=== PATIENT | male | born 1940 | race Caucasian/White ===

== ENCOUNTER 2020-11-08 04:35 | Inpatient (IN) | payer MEDICARE, SELFPAY ==
[2020-11-08] VITALS (36 sets, daily range): BP systolic 97–162; BP diastolic 60–105; PULSE 70–181; RESP 14–25; TEMP 35.9–38.3; O2SAT 96–100; BMI 45.4; BMI 30.7
--- NOTE | 2020-11-08 04:49 | ECG_ITS ---
APPROVED REPORT Exam: Resting ECG HR:159 bpm ECG Measurements Heart Rate 159 AXES QRSd 136 QRS -15 QT 298 T 173 QTc 484 Conclusion Atrial fibrillation with rapid ventricular response with premature ventricular or aberrantly conducted complexes Nonspecific intraventricular block Nonspecific T wave abnormality, probably digitalis effect Abnormal ECG Electronically signed by : Valerio Rdz, 11/08/2020 07:41:09
--- NOTE | 2020-11-08 04:59 | XR_ITS ---
PROCEDURE: XR CHEST PORTABLE Referring Doctor: Gary Betancourt Patient Age:80Y CLINICAL HISTORY: intubation recent covid 19 COMPARISON: CR CXR CHEST(2 VIEWS-NOT PORTABLE) from 09/08/2014 FINDINGS: Endotracheal tube has been placed. Satisfactory position tip just below the level of the head of the clavicles, with with tip 5.7 cm above farhana. Endotracheal tube also is in place and seen passing inferiorly at least to the GE junction at the lower margin of the image but The left lung appears hyperexpanded and clear with only some mild atelectasis left base . Right lung there is a right perihilar infiltrate-most evident at right suprahilar region with subtle minimal infiltrate extending superiorly towards the right apex. Question subtle infiltrate throughout the RUL along with some mild volume loss. Also appears to be infiltrate at the right infrahilar region extending slightly with elevation right hemidiaphragm but there also subtle perihilar infiltrate extending towards right midlung likely present. Chest wall unremarkable Advanced arthritic changes are seen at the shoulders noted. Heart normal size with normal pulmonary vascularity. IMPRESSION: ET tube satisfactory position. NG tube in place as well extending at least to the GE junction Right perihilar/central infiltrate most evident right suprahilar region&right upper lobe Additional elevation right hemidiaphragm reflects some of associated volume loss on right compared to prior studies Dictated by: Patric Richmond MD 11/08/2020 18:42 Patric Richmond MD in [place] 11/08/2020 18:42
--- NOTE | 2020-11-08 05:18 | PC.NURSE ---
called [facility] and they advised they had no icu beds
--- NOTE | 2020-11-08 05:20 | PC.NURSE ---
called [facility] for flight status and stand by request. closet was gonna be their [place] with a 45 min flight time plus lift. they advised they will call [facility] and call us back.
--- NOTE | 2020-11-08 05:20 | PC.NURSE ---
Pt found by family at home with Agonal Respirations 911 called EMS states pt had pulse, but Agonal breaths on EMS arrival. Pt become PEA when loaded into Ambulance, Bag Mask ventalation on arrival with chest compressions in progress. Pt was asystole on arrival 20 ga IV to left AC per EMS with N.S. infusing. code taken over by this staff on arrival pt given Epi @ 0438 CPR continues, 7.5 ETT placed 19cm @ lip Positive Color change and bilateral breath sounds auscultated, tube secured with device. Saleh 16 fr placed with turbid return, Pt deep suctioned, 0449 appears fine v-fib on monitor 1 amp of atropine given, CPR continues, 0443 1 amp EPI given and OG place with air auscultated over abd. 0445 pt has palpable pulse A-Fib on monitor rate of 135. 0448 BiCarb 1 amp given, 0449 EKG obtained, pt placed on vent, attempting to get pt transferred, Pupils 5mm and sluggish but round and equal.
[2020-11-08 05:24] LABS: Basophils # 0.1 K/mm3 (0-0.2); Basophils % 0.8 % (0.1-2.0); Eosinophils # 0.1 K/mm3 (0.0-0.4); Eosinophils % 0.6 % (0.1-12.0); Hemoglobin 8.2 g/dL (14.1-18.0); Lymphocytes # 2.7 K/mm3 (0.7-4.5); Lymphocytes % 32.8 % (10-50); Mean Corpuscular HGB Conc 29.7 g/dL (31.8-35.4); Mean Corpuscular Hemoglobin 32.2 pg (27.0-31.2); Mean Corpuscular Volume 108.4 fl (80-94); Mean Platelet Volume 8.9 fl (7.4-10.4); Monocytes # 0.5 K/mm3 (0.1-1.0); Neutrophils # 4.8 K/mm3 (1.8-7.8); Neutrophils % 59.9 % (37.0-80.0); Platelet Count 228 K/mm3 (142-424); Red Blood Count 2.56 M/mm3 (4.60-6.20); Red Cell Distribution Width 19.3 % (11.5-17.5); White Blood Count 8.1 K/mm3 (4.8-10.8)
--- NOTE | 2020-11-08 05:24 | HMH.EDCPR ---
ED Disposition Clinical Impression: Severe sepsis with acute organ dysfunction, Septic shock, Elevated brain natriuretic peptide (BNP) level, Renal insufficiency Respiratory failure with hypercapnia Qualifiers: Chronicity: acute Qualified Code(s): J96.02 - Acute respiratory failure with hypercapnia UTI (urinary tract infection) Qualifiers: Urinary tract infection type: acute cystitis Hematuria presence: without hematuria Qualified Code(s): N30.00 - Acute cystitis without hematuria Anemia Qualifiers: Anemia type: unspecified type Qualified Code(s): D64.9 - Anemia, unspecified Obesity Qualifiers: Obesity type: due to excess calories Obesity classification: adult class 3 (BMI >= 40) Serious obesity comorbidity presence: with serious comorbidity Body mass index: BMI 45.0-49.9 Qualified Code(s): E66.01 - Morbid (severe) obesity due to excess calories; Z68.42 - Body mass index [BMI] 45.0-49.9, adult A-fib Qualifiers: Atrial fibrillation type: unspecified Qualified Code(s): I48.91 - Unspecified atrial fibrillation Disposition: Admitted As Inpatient Condition on Discharge: Critical - Critical Care Critical Care Time: Yes Attestation: On 11/08/20, the high probability of a clinically significant, sudden or life threatening deterioration of the following system(s) required my full and direct attention, intervention and personal management. The time I documented below is in addition to time spent performing reported procedures but includes the following listed in this critical care notation. Total Critical Care Time: 90 Vital system(s) involved:: Respiratory Failure, Shock (Septic) My critical care processes included: Assessment & monitoring of V/S, Initial and Re-exams, Coordinating Care, Medication Orders and management, Documentation [facility] Code Documentation - Arrest Information Outside of Hospital The Code Document Section documentation for [id number] Aidan Dukes was populated with data that defaulted in from the spares scheduler in the Code Assessment on f_Reg Service Date] to provide within this report, the status and treatment of the patient in the ED during a Code. This documentation will be supplemented with my direct findings within the body of the report. Date Treatment Initiated: 11/08/20 Time Treatment Initiated: 04:30 Treatment Initiated By: EMS Location of Arrest: home Arrest Witnessed: Yes Estimated Down Time: 5 minutes - ALS Code Inititation ALS Initiated By: EMS ALS Type: ACLS ALS Initiated Start Time: 04:30 - Patient Condition At Code Start Condition of Patient at Start of Code: Apneic Monitoring Devices: ECG Monitor, Pulse Oximeter - Circulation Initial Cardiac Rhythm: PEA - Oxygenation Oxygen Breathing Status: Assisted - Labs Fingerstick Blood Glucose: 270 - Procedures ABG's Drawn: Yes Labs Drawn: Yes - Assisted Ventilation ETT Insertion Time: 04:40 ETT Size: 7.5 ETT Insertion Site: Oral Endotracheal ETT Position at Lip: 19 ETT Tube Inserted By: JS - Urinary Catheter Saleh Date of Insertion: 11/08/20 Time of Insertion: 03:40 Size (Fr): 16 Saleh Balloon Amount: 10 - Gastric Tube Oral Suction: Low Gastric Content Description: Clear - Code End Time Code Ended: 04:45 Patient Successfully Resuscitated: Yes (afib RVR Vent assist resp) Reason Code Ended: Survived - Return of Circulation > 20 minutes Family Members Present During Code: No Names of All Individuals Present at Code: Dr Betancourt. Sanket Kaur RN. Belén Ferraro RN. ROBLES Garcia RN. Douglas Marshall. Nancie Martinez RN Medical Decision Making - Medical Records Medical records reviewed: Yes: I reviewed the patient's medical records. - Eyal Inquiry Pt receiving controlled substance: No Vital Signs: 11/08/20 04:35 11/08/20 04:55 11/08/20 05:00 Temperature 99.4 F Temperature Source Rectal Pulse Rate [Right] 181 H 163 H Respiratory Rate 14 16 Blood Pressure [Right Arm] 120/73 138/105 H
[2020-11-08 05:29] LABS: Hematocrit 27.7 % (42.0-52.0)
[2020-11-08 05:29] LABS: Microscopic, Urine URINE MICROSCOPIC (MICROSCOPIC)
--- NOTE | 2020-11-08 05:32 | PC.NURSE ---
called [facility]. they advised they had no beds available at this time.
[2020-11-08 05:35] LABS: ABG Base Excess -11.4 mmol/L (-2.4-2.3); ABG Oxygen Saturation 100 % (90-100); ABG PO2 277.3 mmhg (80-100); ABG TCO2 25.8 mmhg (23-27)
[2020-11-08 05:36] LABS: Allen's Test Patient Unable; Oxygen 100 %; Source Right Femoral
[2020-11-08 05:37] LABS: ABG PCO2 124.4 mmhg (35.0-45.0); ABG PH 6.87 mmol/L (7.35-7.45)
[2020-11-08 05:39] LABS: ABG Base Excess -6.7 mmol/L (-2.4-2.3); ABG HCO3 21.7 mmhg (22.0-26.0); ABG Oxygen Saturation 100 % (90-100); ABG PO2 313.6 mmhg (80-100); ABG TCO2 23.5 mmhg (23-27); Oxygen 100 %; PEEP 6; Tidal Volume 440; Vent Rate 20
[2020-11-08 05:40] LABS: Allen's Test Patient Unable; Source Left Radial
[2020-11-08 05:41] LABS: ABG PCO2 59.8 mmhg (35.0-45.0); ABG PH 7.18 mmol/L (7.35-7.45)
--- NOTE | 2020-11-08 05:45 | ECG_ITS ---
APPROVED REPORT Exam: Resting ECG HR:92 bpm ECG Measurements Heart Rate 92 AXES AL 152 P 53 QRSd 88 QRS 8 QT 372 T 48 QTc 460 Conclusion Sinus rhythm with fusion complexes Low voltage QRS Borderline ECG Electronically signed by : Valerio Rdz, 11/08/2020 20:59:48
[2020-11-08 05:46] LABS: Alanine Aminotransferase 114 U/L (12-78); Albumin Level 2.5 g/dl (3.5-5.0); Alkaline Phosphatase 62 U/L (38-126); Anion Gap 14.3 mEq/L (5-15); Aspartate Amino Transferase 117 U/L (17-59); Bilirubin,Direct 0.4 mg/dl (0.0-0.4); Bilirubin,Total 0.4 mg/dl (0.2-1.3); Blood Urea Nitrogen 29 mg/dl (9-20); Calcium 7.6 mg/dl (8.4-10.2); Carbon Dioxide 24 mmol/L (22.0-30.0); Chloride 107 mmol/L (98-107); Creatinine Clearance Estimated 38 mL/min (50-200); Estimated Glomerular Filt Rate 49 ml/min (>60); GFR (African American) 59 ML/MIN (>60); Glucose 289 mg/dl (74-100); Potassium 5.3 mmoL/L (3.5-5.1); Sodium 140 mmol/L (136-145)
[2020-11-08 05:55] LABS: Adenovirus,PCR Not Detected (NotDetected); Bordetella Pertussis Not Detected (NotDetected); Chlamydophila Pneumoniae, PCR Not Detected (NotDetected); Coronavirus 19, PCR Not Detected (NotDetected); Coronavirus 229E Not Detected (NotDetected); Coronavirus NL63 Not Detected (NotDetected); Coronavirus OC43 Not Detected (NotDetected); Coronovirus HKU1,PCR Not Detected (NotDetected); Human Metapneumovirus Not Detected (NotDetected); Influenza A, PCR Not Detected (NotDetected); Influenza AH1, 2009 Not Detected (NotDetected); Influenza AH1, PCR Not Detected (NotDetected); Influenza AH3,PCR Not Detected (NotDetected); Influenza B, PCR Not Detected (NotDetected); Mycoplasma Pneumoniae, PCR Not Detected (NotDetected); Parainfluenza 1, PCR Not Detected (NotDetected); Parainfluenza 2, PCR Not Detected (NotDetected); Parainfluenza 3, PCR Not Detected (NotDetected); Parainfluenza 4, PCR Not Detected (NotDetected); Respiratory Syncytial Virus Not Detected (NotDetected); Rhinovirus/Enterovirus Not Detected (NotDetected)
[2020-11-08 05:59] LABS: NT Pro Brain Natriuretic Pep. 1800 pg/mL (0-450); Troponin I 0.02 ng/ml (0.00-0.034)
[2020-11-08 06:01] LABS: Coronavirus 19 IgG Antibody Negative (Negative); Coronavirus 19 IgM Antibody Negative (Negative)
[2020-11-08 06:03] LABS: Procalcitonin 0.147 ng/mL (0.0-2.0)
[2020-11-08 06:06] LABS: ABG Base Excess 3.4 mmol/L (-2.4-2.3); ABG HCO3 29.9 mmhg (22.0-26.0); ABG Oxygen Saturation 99 % (90-100); ABG PH 7.29 mmol/L (7.35-7.45); ABG PO2 156.2 mmhg (80-100); ABG TCO2 31.9 mmhg (23-27); Allen's Test Patient Unable; Oxygen 60 %; PEEP 6; Source Left Radial; Tidal Volume 440; Vent Rate 16
[2020-11-08 06:07] LABS: ABG PCO2 63.5 mmhg (35.0-45.0)
--- NOTE | 2020-11-08 06:16 | PC.NURSE ---
Serafin speaking to [facility] MD's at this time.
[2020-11-08 06:18] LABS: Appearance,Urine TURBID (Clear); Bilirubin,Urine Negative (Negative); Blood, Urine 2+ (Negative); Color,Urine YELLOW (Yellow); Glucose,Urine (UA) Negative (Negative); Ketones,Urine Negative (Negative); Leukocyte Esterase,Urine 3+ (Negative); Nitrate,Urine Negative (Negative); Protein,Urine 2+ (Negative); Specific Gravity, Urine 1.025 (1.005-1.030); Urobilinogen,Urine 0.2 EU/dl (0.2)
[2020-11-08 06:21] LABS: WBC,Urine TNTC #/hpf (0-3)
--- NOTE | 2020-11-08 06:32 | PC.NURSE ---
spoke to [facility] and they advised they will put mr. joshi on the waiting list.
--- NOTE | 2020-11-08 06:32 | PC.NURSE ---
call out to dr. valentino at this time.
--- NOTE | 2020-11-08 06:48 | PC.NURSE ---
Speaking with Philip, pharmacist regarding lovenox dosing. She recommends 131mg one time dose.
--- NOTE | 2020-11-08 08:44 | HMH.HP ---
*Admission Date: 11/08/20 *Chief complaint: Trouble breathing/cardiac arrest *History of present illness: The patient is an 80 year old male who presented to [facility] ER this morning in respiratory and arrest. Patient was recently hospitalized at [facility] in [place] for surgery due to bladder cancer. He was found to be Covid 10 positive postoperatively. The night of surgery he had to be intubated due to respiratory distress. He was extubated after 7 days. A few days after that, patient became sedated again and was intubated again for 3 days. He was eventually released home on Nov.04 after completing Covid quarantine. He has never been officially diagnosed with COPD but he was discharged from [facility] with continuous oxygen per nasal cannula and prescriptions for Combivent and Anoro. On the evening prior to admission he started having some difficulty breathing. Around 3 am he worsened and was found to be barely breathing. EMS was called to bring patient to the ER. While in route he went into respiratory and cardiac arrest. Upon arriving at the ER patient was not breathing and was in asystole. He was intubated and ACLS protocol was initiated. He regained a pulse and was in a. fib with rapid ventricular response. He eventually converted back to sinus rhythm. Initial blood gas showed an extreme respiratory acidosis which improved with treatment over the next few hours. [facility] History I have reviewed the patient's past medical history: No (history obtained from family) Medical History: Reports:: Cancer (bladder), Gastroesophageal Reflux Disease(GERD), Home Oxygen, Hyperlipidemia, Hypertension *Have you ever received a pneumonia vaccine?: No (Unknown at this time) *Have you received a flu vaccine this season?: No (Unknown at this time) Other Surgeries: Yes: Other (bladder scraping due to prostate cancer 2019) - *Social History *Occupational Status:: retired *Travel in the last 8 weeks: None Family Hx:: Unable to obtain Review of Systems - Review of Systems Review of systems:: unable to obtain Meds Home Medications Medication Instructions Recorded Confirmed Type Amlodipine Besylate [Norvasc 5mg 5 mg PO DAILY 11/08/20 11/08/20 History tablet] Atorvastatin Calcium [Lipitor 80mg 80 mg PO HS 11/08/20 11/08/20 History Tablet*] Hydralazine HCl [Hydralazine HCl 25 mg PO QID 11/08/20 11/08/20 History 25mg Tablet] Metoprolol Tartrate [Lopressor 25 mg PO BID 11/08/20 11/08/20 History 25mg tablet] Pantoprazole Sodium [Protonix 40mg 40 mg PO BID 11/08/20 11/08/20 History tablet] Tamsulosin HCl 0.4 mg PO HS 11/08/20 11/08/20 History methocarbamoL [Methocarbamol 500mg 750 mg PO BID 11/08/20 11/08/20 History Tablet] Allergies Allergy/AdvReac Type Severity Reaction Status Date / Time Penicillins Allergy Intermediate Rash Verified 11/08/20 08:17 Exam Vital signs and Labs for Last 24 Hours: Temp Pulse Resp BP Pulse Ox 96.6 F L 72 16 155/77 H 100 11/08/20 08:42 11/08/20 08:21 11/08/20 08:21 11/08/20 08:21 11/08/20 08:21 Laboratory Results - last 24 hr 11/08/20 04:55: Urine Color Yellow, Urine Appearance Turbid, Urine pH 6.0, Ur Specific [place] 1.025, Urine Protein 2+, Urine Glucose (UA) Negative, Urine Ketones Negative, Urine Blood 2+, Urine Nitrate Negative, Urine Bilirubin Negative, Urine Urobilinogen 0.2, Ur Leukocyte Esterase 3+ A, Urine RBC 10-20, Urine WBC Tntc 11/08/20 04:59: Specimen Source Right femoral, O2 % 100, ABG pH 6.87 L*, ABG pCO2 124.4 H, ABG pO2 277.3 H, ABG HCO3 22.0, ABG Total CO2 25.8, ABG O2 Saturation 100, ABG Base Excess -11.4 L, Tito Test Patient unable 11/08/20 05:10: WBC 8.1, RBC 2.56 L, Hgb 8.2 L, Hct 27.7 L, MCV 108.4 H, MCH 32.2 H, MCHC 29.7 L, RDW 19.3 H, Plt Count 228, MPV 8.9, Neut % (Auto) 59.9, Lymph % (Auto) 32.8, [place] % (Auto) 6.0, Eos % (Auto) 0.6, Baso % (Auto) 0.8, Neut # (Auto) 4.8, Lymph # (Auto) 2.7, [place] # (Auto) 0.5, Eos # (Aut
[2020-11-08 08:55] LABS: Troponin I 0.07 ng/ml (0.00-0.034)
[2020-11-08 09:05] LABS: Reflex Lactic Add Lactic Reflex
--- NOTE | 2020-11-08 09:10 | PC.NURSE ---
0910 - Received call from Amber @ [facility], no bed available at this time. States that it is unknown when a bed will be available, is currently boarding pt's in their ED and PACU.
--- NOTE | 2020-11-08 09:28 | HMH.PHAINT ---
HOME MEDICATIONS RECONCILED WITH RX BOTTLES.
[2020-11-08 09:49] LABS: Lactic Acid Follow Up (RFLX 1) 1.6 mmol/L (0.7-2.1)
--- NOTE | 2020-11-08 10:56 | P.CONPHA_ITS ---
[facility] Pharmacy VTE Monitoring - Patient Demographics Admission date: 11/08/20 Report Date: 11/08/20 Time: 10:56 Allergies/Adverse Reactions: Patient Allergies Penicillins Allergy (Intermediate, Verified 11/08/20 08:17) Rash Height: 1.75 m Weight: 94.4 kg Patient Problems: Current Active Problems Respiratory failure with hypercapnia (Acute) Severe sepsis with acute organ dysfunction (Acute) Septic shock (Acute) UTI (urinary tract infection) (Acute) Anemia (Acute) Obesity (Acute) Elevated brain natriuretic peptide (BNP) level (Acute) Renal insufficiency (Acute) A-fib (Acute) Cardiac arrest (Acute) - VTE Risk Labs: VTE Related Lab Results Hgb 8.2 g/dL (14.1-18.0) L 11/08/20 05:10 Hct 27.7 % (42.0-52.0) L 11/08/20 05:10 Plt Count 228 K/mm3 (142-424) 11/08/20 05:10 BUN 29 mg/dl (9-20) H 11/08/20 05:10 Creatinine 1.40 mg/dl (0.66-1.25) H 11/08/20 05:10 Estimated Creat Clear 38 mL/min (50-200) 11/08/20 05:10 Was VTE Risk Assessment Performed: Yes VTE Score: 7 VTE Risk Level: Moderate Risk - Prophylaxis VTE Prophylaxis Ordered?: Yes Types of VTE Prophylaxis: Pharmacological Pharmacologic Type: Enoxaparin
[2020-11-08 11:33] LABS: Hematocrit 32.5 % (42.0-52.0)
--- NOTE | 2020-11-08 11:37 | SUR.OPER ---
Addendum entered by Dena Jama 11/08/20 11:45: Meant to be nutritional follow up note. Original Note: Pt intubated in ARF. Recommend initiating continuous tube feeding regimen of Pulmocare 1.5 at 20ml/hr and increase q 8hr as tolerated to goal rate of 67ml/hr. Pt currently on IVF at 100ml/hr, recommend minimum water flushes of 60ml for tube irrigation. Propofol currently providing minimal additional kcal. Will monitor fluids and Propofol to adjust TF rate as indicated. This regimen provides 2211kcal, 92g protein, 156g cho, 138g fat, and 1157ml free water. Will monitor pt tolerance and adjust regimen as indicated.
[2020-11-08 11:49] LABS: Hemoglobin 11.3 g/dL (14.1-18.0)
[2020-11-08 11:50] LABS: Troponin I 0.11 ng/ml (0.00-0.034)
[2020-11-08 12:07] LABS: POC Glucose,Bedside 125 (70-110)
--- NOTE | 2020-11-08 13:51 | PC.NURSE ---
FIO2 decreased to 50 % by RT @ 1030
--- NOTE | 2020-11-08 15:52 | PC.NURSE ---
1230 - Dr. Grier called to check on pt. MD states to not begin tube feeds @ this time, may consider in AM. Once current liter of NS @ 100 is finished, change MVF to D5/0.45%+20 meq KCL @ 100 mls/hr.
[2020-11-08 16:33] LABS: POC Glucose,Bedside 126 (70-110)
--- NOTE | 2020-11-08 17:09 | PC.NURSE ---
No acute changes. Remains on vent, AC 50%, 440, 6, 16, tolerating settings well. #7.5 ETT 21 @ lip, midline position. Oral care and suction performed Q2H. NSR on tely. SBP 140-150's. OG @ 55 cm @ lip. FSBS checked Q6H - 125,126. No BM this shift. Saleh cath to drain at bedside w/ cloudy/ mucous yellow urine noted. Saleh care performed by staff. Scattered bruising, scab noted to left knee. Teds in place to BLE. Turned and repositioned Q2H. at bedside for majority of the day. Propofol titrated down from 30 mcg to 10 mcg/kg/min. Bed alarm in place.
[2020-11-08 20:33] LABS: POC Glucose,Bedside 130 (70-110)
--- NOTE | 2020-11-08 23:11 | PC.NURSE ---
2801 dr. valentino notified of facial and body twitching that increases with decreasing sedation, informed no cough with suctioning and pupils pinpoint. order to increase propofol back up
--- NOTE | 2020-11-08 23:56 | PC.NURSE ---
initital assessment: patient is found to have eyes open with chewing motion of mouth, sedation increased to 25 mcq from 20
--- NOTE | 2020-11-08 23:57 | PC.NURSE ---
2100 eyes remain open and chewing motion continues propofol increased to 35 2130 eyes remain open no mouth motion noted propofol increased to 40. 2200 eyes remain open, patient not breathing over the vent, no coughing present when suctioning. propofol decreased back to 30.
[2020-11-09] VITALS (35 sets, daily range): BP systolic 120–203; BP diastolic 63–101; PULSE 74–105; RESP 16–22; TEMP 37.3–38.1; O2SAT 94–100; BMI 30.6
--- NOTE | 2020-11-09 04:19 | PC.NURSE ---
[facility] called for update, no bed available at this time
[2020-11-09 04:41] LABS: POC Glucose,Bedside 135 (70-110)
--- NOTE | 2020-11-09 06:00 | XR_ITS ---
PROCEDURE: XR CHEST PORTABLE CLINICAL HISTORY: Pt is intubated COMPARISON: CR CXR CHEST(2 VIEWS-NOT PORTABLE) from 09/08/2014 CR XR CHEST PORTABLE from 11/08/2020 FINDINGS: The endotracheal tube now sits right above the farhana, probably 1 cm. The NG tube is seen with the tip along the greater curvature of the stomach. This is a somewhat poor inspiration. There has been interval worsening of pneumonic infiltrate left perihilar region and left lower lobe with some minimal streaky infiltrate in the right upper lobe. Heart size is grossly normal considering the poor inspiration. There is prominent calcification of the aortic arch. IMPRESSION: Interval change in the endotracheal tube position now seen just slightly above the farhana. Worsening of the left perihilar and left lower lobe ill-defined pneumonic infiltrates, stable minimal infiltrate right suprahilar region right upper lobe. Dictated by: Dr. Zia Mcdonnell MD 11/09/2020 08:14 Dr. Zia Mcdonnell MD in [facility] 11/09/2020 08:14
[2020-11-09 06:06] LABS: Basophils % 0.1 % (0.1-2.0); Hematocrit 31.3 % (42.0-52.0); Lymphocytes # 1.4 K/mm3 (0.7-4.5); Lymphocytes % 13.2 % (10-50); Mean Corpuscular HGB Conc 30.8 g/dL (31.8-35.4); Mean Corpuscular Hemoglobin 31.9 pg (27.0-31.2); Mean Corpuscular Volume 103.4 fl (80-94); Mean Platelet Volume 8.2 fl (7.4-10.4); Monocytes # 0.5 K/mm3 (0.1-1.0); Monocytes % 5.1 % (1.7-9.3); Neutrophils # 8.4 K/mm3 (1.8-7.8); Neutrophils % 81.6 % (37.0-80.0); Platelet Count 256 K/mm3 (142-424); Red Blood Count 3.02 M/mm3 (4.60-6.20); Red Cell Distribution Width 20.1 % (11.5-17.5); White Blood Count 10.3 K/mm3 (4.8-10.8)
[2020-11-09 06:07] LABS: Hemoglobin 9.6 g/dL (14.1-18.0)
[2020-11-09 06:13] LABS: Chloride 109 mmol/L (98-107); Sodium 142 mmol/L (136-145)
--- NOTE | 2020-11-09 06:13 | PC.NURSE ---
patient has had no more obvious twitching of facial muscles or legs since sedation increased up to 40 mcq. patient continues to have no cough reflex with suctioning and is unresponsive. when ett position changed to left side of mouth it was noted that tip of tongue is swollen with abrasion on top and bottom. secretions blood tinged at times after oral care performed. breath sounds course throughout all grace, copoius amounts of oral and endotrachael thin, clear secretions. 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
[2020-11-09 06:14] LABS: Potassium 4.1 mmoL/L (3.5-5.1)
[2020-11-09 06:16] LABS: Anion Gap 7.1 mEq/L (5-15); Blood Urea Nitrogen 30 mg/dl (9-20); Carbon Dioxide 30 mmol/L (22.0-30.0); Creatinine Clearance Estimated 63 mL/min (50-200); Estimated Glomerular Filt Rate 58 ml/min (>60); GFR (African American) 70 ML/MIN (>60)
[2020-11-09 06:17] LABS: Calcium 8.2 mg/dl (8.4-10.2); Glucose 128 mg/dl (74-100); Magnesium 2.2 mg/dl (1.6-2.3)
[2020-11-09 07:03] LABS: ABG Base Excess 0.2 mmol/L (-2.4-2.3); ABG HCO3 24.5 mmhg (22.0-26.0); ABG Oxygen Saturation 98 % (90-100); ABG PCO2 37.6 mmhg (35.0-45.0); ABG PH 7.43 mmol/L (7.35-7.45); ABG PO2 109.9 mmhg (80-100); ABG TCO2 25.7 mmhg (23-27)
[2020-11-09 07:12] LABS: Allen's Test Patient Unable; Oxygen 50 %; PEEP 6; Source Left Radial; Tidal Volume 440; Vent Rate 16
--- NOTE | 2020-11-09 08:49 | HMH.ACPN2 ---
<Lauren Barriga - Last Filed: 11/09/20 08:49> Internal Medicine - PN: Subj *Date: 11/09/20 *Time: 08:50 Interval history: Patient remains on the vent with a tidal volume of 442 650% and assist control of 16 feet. Assistance at this time. Pain without propofol drip for sedation. Patient has had a low-grade fever. Per nursing. Patient has been twitching and propofol brace. Patient none assisting been at this time. Is been suction for large amount of secretions. With a Saleh catheter. No purposeful movement noticed. Laboratory data this morning: CBC with a hemoglobin of 9.6 hematocrit of 31.3, and white blood cell count of 10,300. ABGs with pH of 7.43 PCO2 of 37.6 PO2 of 109.9 and bicarb of 24.5. History is with a sodium of 142, potassium of 4.1. BUN is 30 and creatinine is 1.2. Patient's are still pending. Exam Vital signs and Labs for Last 24 Hours: Temp Pulse Resp BP Pulse Ox 99.2 F 80 16 164/78 H 100 11/09/20 06:00 11/09/20 06:00 11/09/20 06:00 11/09/20 06:00 11/09/20 06:00 Laboratory Results - last 24 hr 11/08/20 08:28: Troponin I 0.07 H 11/08/20 09:35: Lactate 1.6 11/08/20 11:14: POC Glucose 125 H 11/08/20 11:20: Troponin I 0.11 H 11/08/20 11:20: Hgb 11.3 L D, Hct 32.5 L 11/08/20 16:25: POC Glucose 126 H 11/08/20 20:20: POC Glucose 130 H 11/09/20 04:29: POC Glucose 135 H 11/09/20 05:23: WBC 10.3 D, RBC 3.02 L, Hgb 9.6 L D, Hct 31.3 L, MCV 103.4 H, MCH 31.9 H, MCHC 30.8 L, RDW 20.1 H, Plt Count 256, MPV 8.2, Neut % (Auto) 81.6 H, Lymph % (Auto) 13.2, [place] % (Auto) 5.1, Eos % (Auto) 0.0 L, Baso % (Auto) 0.1, Neut # (Auto) 8.4 H, Lymph # (Auto) 1.4, [place] # (Auto) 0.5, Eos # (Auto) 0.0, Baso # (Auto) 0.0 11/09/20 05:23: Sodium 142, Potassium 4.1 D, Chloride 109 H, Carbon Dioxide 30 D, Anion Gap 7.1, BUN 30 H, Creatinine 1.20, Estimated Creat Clear 63, Estimated GFR 58 L, Est GFR ( Amer) 70, Glucose 128 H, Calcium 8.2 L, Magnesium 2.2 11/09/20 06:45: Specimen Source Left radial, O2 % 50, ABG pH 7.43, ABG pCO2 37.6, ABG pO2 109.9 H, ABG HCO3 24.5, ABG Total CO2 25.7, ABG O2 Saturation 98, ABG Base Excess 0.2, Tito Test Patient unable, Vent Rate 16, Tidal Volume 440, PEEP 6 I & O for Last 24 hours: Intake & Output 11/06/20 11/07/20 11/08/20 11/09/20 11:59 11:59 11:59 11:59 Intake Total 4287 / 4403 2167 / 2167 Output Total 660 / 750 995 / 995 Balance 3627 / 3653 1172 / 1172 Weight 207 lb 3.752 oz 206 lb 12.697 oz Microbiology Reports for the Last 24 Hours: Microbiology 11/08/20 08:40 Sputum - Endotracheal Tube Aspirate Gram Stain - Final 11/08/20 08:40 Sputum - Endotracheal Tube Aspirate Sputum Culture - Preliminary 11/08/20 04:55 Urine,Catheterized Urine Culture - Preliminary - Constitutional no acute distress - *Routine Respiratory Exam Comments: Coarse rhonchi greater on the right. - *Routine Cardiovascular Exam Present: RRR (Showing sinus rhythm in the 90s) - *Routine Abdominal Exam Present: soft, normoactive bowel sounds - *Routine Extremities Exam Absent: edema, calf tenderness - *Routine Neurological Exam Absent: moving all extremities Assessment and Plan (1) Cardiac arrest Status: Acute Category: Medical Code(s): I46.9 - Cardiac arrest, cause unspecified (2) A-fib Status: Acute Qualifiers: Atrial fibrillation type: unspecified Qualified Code(s): I48.91 - Unspecified atrial fibrillation Category: Medical Code(s): I48.91 - Unspecified atrial fibrillation (3) Anemia Status: Acute Qualifiers: Anemia type: unspecified type Qualified Code(s): D64.9 - Anemia, unspecified Category: Medical Code(s): D64.9 - Anemia, unspecified (4) Elevated brain natriuretic peptide (BNP) level Status: Acute Category: Medical Code(s): R79.89 - Other specified abnormal findings of blood chemistry (5) Obesity Status: Acute Qualifiers: Obesity type: due to excess calories Obesity classification:
--- NOTE | 2020-11-09 09:13 | PC.NURSE ---
per md decreasing propofol. currently at 20 mcg/kg/min
--- NOTE | 2020-11-09 09:48 | CT_ITS ---
PROCEDURE: CT HEAD/BRAIN WO CON CLINICAL INDICATION: Seizure like activity, post cardiac arrest COMPARISON: No exams were available for comparison TECHNIQUE: Axial images obtained. All CT scans at the facility use one or more dose reduction, viz: automated exposure control, ma/kV adjustment per patient size (including targeted exams where dose is matched to indication, i.e. head), or iterative reconstruction technique. FINDINGS: No midline shift, mass effect, intracranial hemorrhage, hydrocephalus, or extra-axial fluid collection is evident. There is a tiny faint hypodense lesion in the basal ganglia on each side suggestive of old lacunar infarcts. The sylvian fissures and cortical sulci are mildly prominent. There are no significant ischemic white matter changes seen. The calvarium has an unremarkable appearance. No mastoid effusion. There is prominent mucoperiosteal thickening of the right maxillary sinus and mild inflammatory changes are seen in the ethmoid sinuses. 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 If an acute CVA is strongly suspected clinically follow-up MRI scan of the brain without and with contrast may be helpful. Dictated by: Dr. Zia Mcdonnell MD 11/09/2020 10:30 Dr. Zia Mcdonnell MD in [facility] 11/09/2020 10:30
--- NOTE | 2020-11-09 10:16 | HMH.PULMCON ---
*Admission Date: 11/08/20 *Reason for consult:: Acute hypoxic and hypercarbic respiratory failure *History of present illness: Mr. Dukes is a 80-year-old male with a recent diagnosed COPD more than [id number] smoking history significant exertional dyspnea at baseline, recently discharged on 2 L oxygen therapy as needed was presented emergency department with worsening shortness of breath and agonal breathing and patient was found to be in hypercarbic respiratory failure with a PCO2 of 127. Patient also witnessed cardiac arrest with a rhythm of atrial fibrillation with ROSC status post ACLS. Patient also had a recent hospital admission for prostate cancer surgery status post intubation for 7 days extubated and then had immediate respiratory failure with intubation for 3 more days. Etiologies were respiratory failure intubation not known at this point of time. Patient also had a recent diagnosis of Covid status post completing Covid quarantine on November 04. Pulmonary was called for further management [facility] History Medical History: Reports:: Atrial Fibrillation, Cancer (bladder), Congestive Heart Failure, Gastroesophageal Reflux Disease(GERD), Home Oxygen, Hyperlipidemia, Hypertension Denies:: Diabetes Mellitus Type 1, Diabetes Mellitus Type 2, MRSA *Have you ever received a pneumonia vaccine?: No (Unknown at this time) *Have you received a flu vaccine this season?: No (Unknown at this time) Other Medical History: Reports: Cataracts Laterality Cases: Right: Total Hip Replacement, Bilateral: Cataract Other Surgeries: Yes: Colonoscopy, Hernia Repair, Other (bladder scraping due to prostate cancer 2019) Fractures: (left leg) - *Social History Last grade of school completed: Some college Smoking Status: Former smoker Tobacco Type: cigarettes Alcohol Intake: never *Occupational Status:: retired Housing: house Household Members: family *Travel in the last 8 weeks: None Family Hx:: Unable to obtain ROS - Review of Systems Review of systems unable to obtain as patient was intubated and sedated. Meds Home Medications Medication Instructions Recorded Confirmed Type Amlodipine Besylate [Norvasc 5mg 5 mg PO DAILY 11/08/20 11/08/20 History tablet] Atorvastatin Calcium [Lipitor 80mg 80 mg PO HS 11/08/20 11/08/20 History Tablet*] Hydralazine HCl [Hydralazine HCl 25 mg PO QID 11/08/20 11/08/20 History 25mg Tablet] Metoprolol Tartrate [Lopressor 25 mg PO BID 11/08/20 11/08/20 History 25mg tablet] Pantoprazole Sodium [Protonix 40mg 40 mg PO BID 11/08/20 11/08/20 History tablet] Tamsulosin HCl 0.4 mg PO HS 11/08/20 11/08/20 History methocarbamoL [Methocarbamol 500mg 750 mg PO BID 11/08/20 11/08/20 History Tablet] Allergies Allergy/AdvReac Type Severity Reaction Status Date / Time Penicillins Allergy Intermediate Rash Verified 11/08/20 08:17 Exam Radiology reports for Last 24 Hours: Chest x-ray showed left lower lobe pulmonary infiltrate. ET tube 1 cm above the farhana. - Constitutional Comment:: Patient intubated and sedated. - HENMT Exam HENMT: normocephalic, atraumatic - Eye Exam Eyes:: normal appearance both eyes and related structures - Neck Exam Neck:: normal visual inspection, thyroid normal, no lymphadenopathy, JVD - Respiratory Exam Comments: Bilateral mild coarse breath sounds with no audible wheeze - Cardiovascular Exam Cardiac:: S1, S2 - GI Exam GI:: soft, no hepatosplenomegaly, obese - Skin Exam Skin: warm, no rash - Neurological Exam Intubated and sedated. Attempt to wean sedation for SBT resulted in a active seizure episode that resolved with 2 mg of Ativan. - Extremities Exam Extremities: no cyanosis, no clubbing, edema Internal Medicine - CN: Reslt - Labs CBC & Chem 7: 11/09/20 05:23 11/09/20 05:23 Labs: Short CBC 11/08/20 11/09/20 Range/Units 11:20 05:23 WBC 10.3 D (4.8-10.8) K/mm3 Hgb 11.3 L D 9.6 L D (14
--- NOTE | 2020-11-09 10:25 | PC.NURSE ---
TRANSPORTED PT TO CT SCAN @ 1000 AND RETURNED @ 1028
--- NOTE | 2020-11-09 10:59 | PC.NURSE ---
0935 sedation was turned off. noted patient resp rate to be 26, bp increased. eyes flutering, and shaking noted of legs. samy came to bedside and ordered 2mg iv ativan, and because of elevated bp ordered a 1 time dose of iv labetolol 5mg all given about [id number]. patient taken down to ct after that. bp is remaining on higher side, but shaking has diminished. patient now breathing with vent at 16
--- NOTE | 2020-11-09 11:26 | PC.NURSE ---
did call and update primary md about patient off sedation. no responses noted. fentanyl drip started. slight fever noted at 100.4. bp is elevated at 203/101. relayed about the seizure like activity earlier and interventions done per samy. md stated he was going to speak with samy.
--- NOTE | 2020-11-09 11:32 | CT_ITS ---
PROCEDURE: CT ANGIO CHEST CLINCIAL INDICATION: Respiratory arrest COMPARISON: CR XR CHEST PORTABLE from 11/08/2020 CR XR CHEST PORTABLE from 11/09/2020 TECHNIQUE: IV Contrast: 70ML Isovue 370 Axial images obtained with sagittal and coronal reformats. All CT scans at the facility use one or more dose reduction, viz: automated exposure control, ma/kV adjustment per patient size (including targeted exams where dose is matched to indication, i.e. head), or iterative reconstruction technique. FINDINGS: HEART AND MEDIASTINAL STRUCTURES: Inspiration is mild generalized cardiomegaly and mild aortic tortuosity. There is no pericardial effusion. There is prominent fat in the superior and anterior mediastinum. LUNGS AND PLEURAL SPACES: The endotracheal tube is in satisfactory position above the farhana. Coarse pneumonic infiltrates are seen in both lower lobes more diffuse right side than left. Infiltrate involves the superior segment right lower lobe as well. There are small reactive pleural effusions bilaterally primarily in the posterior gutters. There is relative sparing of the upper lobes with minimal infiltrate posterior segment right upper lobe. BONY STRUCTURES: No acute bony abnormalities apparent. UPPER ABDOMEN: NG tube seen descending into the stomach up against the greater curvature. There is a hypodense lesion involving the left adrenal gland with mild rim enhancement measuring 2.7 x 3.9 by 3.2 cm. This possibly is an adenoma but in view of its size and neoplastic lesion cannot be entirely excluded. ADDITIONAL FINDINGS: No other significant abnormalities. IMPRESSION: Bilateral lower lobe pneumonic infiltrates more prominent right side than left and showing some moderate interval progression when compared to the portable chest film taken this morning. Dictated by: Dr. Zia Mcdonnell MD 11/09/2020 15:13 Dr. Zia Mcdonnell MD in [place] 11/09/2020 15:13
--- NOTE | 2020-11-09 15:11 | PC.NURSE ---
stated okay to hold off on initiation of tube feeds for today
--- NOTE | 2020-11-09 15:51 | DIET.NUTRFU ---
Initiation tube feedings held per MD. Weight stable. Elevated BG ~130. Continuing to monitor.
[2020-11-09 18:06] LABS: POC Glucose,Bedside 132 (70-110)
[2020-11-09 18:06] LABS: POC Glucose,Bedside 159 (70-110)
--- NOTE | 2020-11-09 20:11 | PC.NURSE ---
spoke with md earlier in shift. about patient Kevin coma scale. stated because it was 3 that would mean mazin would need to be notified. md stated to not notify at this time. he planned to give patient more time to clear sedation, and would readdress in the morning. passed this along to oncoming nurse. overall patient has remained unresponsive to stimuli. did have some breathing over vent when et tube was clogged with secretions, and during what appeared to be seizure like activity. no more seizure like activity since ativan this morning and keppra. patient bp has done well. heart rate has been 70-80s. copious amount of secretions from mouth. et tube suctioning is very thick. oral care, suctioning and turning has been done at least every two hours. skin continues to look good, lukas hose site assessed. small area under knee cap. tolerated going down to ct both times well. permission for family to remain at bedside. pupils pin point. still holding off on tube feeds per md. vitals stable. will continue to monitor.
[2020-11-09 23:09] LABS: POC Glucose,Bedside 110 (70-110)
[2020-11-10] VITALS (36 sets, daily range): BP systolic 127–180; BP diastolic 52–84; PULSE 75–102; RESP 16–19; TEMP 37.2–39.1; O2SAT 50–100; BMI 31.6
--- NOTE | 2020-11-10 02:23 | PC.NURSE ---
He continues to be unresponsive. No changes in gtt dosages from previous shift. Continuing to await notification per report. He has excessive oral secretions. Secretions are thin, clear. Left nare with frequent clear, thin drainage. Appears to be biting tongue although top dentures do not appear to be present. Tip of tongue is pink in color. Unable to place bite guard r/t clinching of jaws. He requires hourly suctioning. Turned and repositioned and oral care provided q 2 hours. No signs of pain. F/c is patent and draining yellow, cloudy urine with sediment. Bilateral hands elevated r/t edema. Edema in hands has decreased since being elevated but he continues to have generalized edema. Scattered bruising noted to abdomen. His is at the bedside.
[2020-11-10 06:00] LABS: POC Glucose,Bedside 104 (70-110)
--- NOTE | 2020-11-10 06:00 | XR_ITS ---
PROCEDURE: XR CHEST PORTABLE Referring Doctor: Shawn Grier Patient Age:80Y CLINICAL HISTORY: Pt intubated Respiratory distress COMPARISON: CR CXR CHEST(2 VIEWS-NOT PORTABLE) from 09/08/2014 CR XR CHEST PORTABLE from 11/08/[address] ANGIO CHEST from 11/09/2020 CR XR CHEST PORTABLE from 11/09/2020 FINDINGS: Single AP portable chest upright performed today and compared to 11/09 and 11/08/2020 P CXR Endotracheal tube remains in place satisfactory position 4 point 7 cm above farhana NG tube remains in place passes through the esophagus with tip well into the stomach Right lung. Perihilar infiltrate of persist most evident at the right suprahilar region but there is some infiltrate right infrahilar region associated with a additional linear atelectasis and air space disease right lung base just above the right hemidiaphragm. Associated elevation right hemidiaphragm Left lung. The mild perihilar infiltrate and basilar infiltrate on left have of shown slight improvement.. Cardiomegaly. Mildly prominent pulmonary vascularity. No definite pleural effusion evident on this CXR. CP angles are fairly sharp IMPRESSION: ET tube and NG tube remain in satisfactory position the Right chest: . Persistent perihilar and central infiltrate on right with no improvement;-and in fact note additional airspace disease and linear atelectasis at right lung base the just above hemidiaphragm. Additional elevation right hemidiaphragm associated . Left lung appears slightly improved, slightly clear overall Dictated by: Patric Richmond MD 11/10/2020 07:00 Patric Richmond MD in [place] 11/10/2020 07:00
[2020-11-10 06:48] LABS: Basophils % 0.1 % (0.1-2.0); Eosinophils % 0.1 % (0.1-12.0); Hematocrit 34.5 % (42.0-52.0); Hemoglobin 10.4 g/dL (14.1-18.0); Lymphocytes # 1.9 K/mm3 (0.7-4.5); Lymphocytes % 17.7 % (10-50); Mean Corpuscular HGB Conc 30.2 g/dL (31.8-35.4); Mean Corpuscular Hemoglobin 31.5 pg (27.0-31.2); Mean Corpuscular Volume 104.4 fl (80-94); Monocytes # 0.5 K/mm3 (0.1-1.0); Monocytes % 4.7 % (1.7-9.3); Neutrophils # 8.5 K/mm3 (1.8-7.8); Neutrophils % 77.4 % (37.0-80.0); Platelet Count 266 K/mm3 (142-424); Red Blood Count 3.31 M/mm3 (4.60-6.20); Red Cell Distribution Width 19.9 % (11.5-17.5)
[2020-11-10 06:54] LABS: Chloride 111 mmol/L (98-107); Potassium 4.8 mmoL/L (3.5-5.1); Sodium 144 mmol/L (136-145)
[2020-11-10 06:57] LABS: Anion Gap 6.8 mEq/L (5-15); Blood Urea Nitrogen 26 mg/dl (9-20); Calcium 8.5 mg/dl (8.4-10.2); Carbon Dioxide 31 mmol/L (22.0-30.0); Creatinine Clearance Estimated 65 mL/min (50-200); Estimated Glomerular Filt Rate 58 ml/min (>60); GFR (African American) 70 ML/MIN (>60); Glucose 111 mg/dl (74-100)
[2020-11-10 06:57] LABS: ABG HCO3 25.7 mmhg (22.0-26.0); ABG Oxygen Saturation 96 % (90-100); ABG PCO2 48.2 mmhg (35.0-45.0); ABG PH 7.35 mmol/L (7.35-7.45); ABG PO2 87.6 mmhg (80-100); ABG TCO2 27.2 mmhg (23-27)
[2020-11-10 07:00] LABS: Oxygen 50 %; Tidal Volume 440; Vent Rate 16
[2020-11-10 07:01] LABS: Allen's Test Patient Unable; PEEP 5
--- NOTE | 2020-11-10 08:36 | PC.NURSE ---
fentanyl turned off
--- NOTE | 2020-11-10 09:06 | HMH.ACPN2 ---
<Lauren Barriga - Last Filed: 11/10/20 09:06> Internal Medicine - PN: Subj *Date: 11/10/20 *Time: 09:06 Interval history: Patient has not responded to pain or verbal stimuli. He does remain on the fentanyl drip . Dr. Aaron consult note reviewed and appreciated. . Laboratory data this morning showS white blood cell count of 11,000 with a hemoglobin of 10.4 and hematocrit of 34.5. ABGs show a pH of 7.35 PCO2 of 48.2 PO2 of 87.6 and bicarb of 25.7. This is on the vent settings of assist control of 16, tidal volume of 440, and FiO2 of 50% and 5 of PEEP. Nursing notes excessive oral secretions . Saleh catheter to bedside drainage patent and draining. Patient is now receiving Keppra 500 mg every 12 hours IV. Fentanyl drip has just been stopped. He continues with D5W with potassium at 100 an hour. And he remains on Invanz 1 g every 24 hours AND Continues with duo nebs and budesonide neb treatments CHEST CT IMPRESSION: Bilateral lower lobe pneumonic infiltrates more prominent right side than left and showing some moderate interval progression when compared to the portable chest film taken this morning. REPEAT AM CXR IMPRESSION: ET tube and NG tube remain in satisfactory position the Right chest: . Persistent perihilar and central infiltrate on right with no improvement;-and in fact note additional airspace disease and linear atelectasis at right lung base the just above hemidiaphragm. Additional elevation right hemidiaphragm associated . 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 If an acute CVA is strongly suspected clinically follow-up MRI scan of the brain without and with contrast may be helpful. Exam Vital signs and Labs for Last 24 Hours: Temp Pulse Resp BP Pulse Ox 101.1 F H 93 H 16 143/77 H 98 11/10/20 07:58 11/10/20 06:31 11/10/20 06:31 11/10/20 06:31 11/10/20 06:31 Laboratory Results - last 24 hr 11/09/20 11:59: POC Glucose 159 H 11/09/20 17:40: POC Glucose 132 H 11/09/20 22:48: POC Glucose 110 11/10/20 05:30: POC Glucose 104 11/10/20 06:00: O2 % 50, ABG pH 7.35, ABG pCO2 48.2 H, ABG pO2 87.6, ABG HCO3 25.7, ABG Total CO2 27.2 H, ABG O2 Saturation 96, ABG Base Excess 0.0, Tito Test Patient unable, Vent Rate 16, Tidal Volume 440, PEEP 5 11/10/20 06:25: WBC 11.0 H, RBC 3.31 L, Hgb 10.4 L, Hct 34.5 L, MCV 104.4 H, MCH 31.5 H, MCHC 30.2 L, RDW 19.9 H, Plt Count 266, MPV 8.0, Neut % (Auto) 77.4, Lymph % (Auto) 17.7, [place] % (Auto) 4.7, Eos % (Auto) 0.1, Baso % (Auto) 0.1, Neut # (Auto) 8.5 H, Lymph # (Auto) 1.9, [place] # (Auto) 0.5, Eos # (Auto) 0.0, Baso # (Auto) 0.0 11/10/20 06:25: Sodium 144, Potassium 4.8, Chloride 111 H, Carbon Dioxide 31 H, Anion Gap 6.8, BUN 26 H, Creatinine 1.20, Estimated Creat Clear 65, Estimated GFR 58 L, Est GFR ( Amer) 70, Glucose 111 H, Calcium 8.5 I & O for Last 24 hours: Intake & Output 11/07/20 11/08/20 11/09/20 11/10/20 11:59 11:59 11:59 11:59 Intake Total 4287 / 4403 4254 / 4422 2290 / 2290 Output Total 660 / 750 1226 / 1256 886 / 886 Balance 3627 / 3653 3028 / 3166 1404 / 1404 Weight 207 lb 3.752 oz 206 lb 12.697 oz 213 lb 10.047 oz Microbiology Reports for the Last 24 Hours: Microbiology 11/08/20 05:10 Blood Blood Culture - Preliminary NO GROWTH AFTER 48 HOURS 11/08/20 05:10 Blood Blood Culture - Preliminary NO GROWTH AFTER 48 HOURS 11/08/20 08:40 Sputum - Endotracheal Tube Aspirate Gram Stain - Final 11/08/20 08:40 Sputum - Endotracheal Tube Aspirate Sputum Culture - Preliminary 11/08/20 04:55 Urine,Catheterized Urine Culture - Preliminary - Constitutional no acute distress Comments: Not responsive
--- NOTE | 2020-11-10 11:20 | PC.NURSE ---
PER HOSPITAL PROTOCOL CONTACTED [facility] BECAUSE OF GLASCOW COMA SCALE LESS THAN 5. PATIENT IS A 3. BECAUSE OF PATIENT PROSTATE/BLADDER CANCER HE WAS RULED OUT A POTENTIAL DONOR. STATED TO STILL CALL IN THE CASE OF A CARDIAC , TO OBTAIN CASE NUMBER
--- NOTE | 2020-11-10 11:48 | HMH.PULMPN ---
Internal Medicine - PN: Subj *Date: 11/10/20 *Time: 12:57 Interval history: No improvement in patient mentation. Ventilatory settings remain stable. Exam - Constitutional Constitutional:: no acute distress, comfortable - HENMT Exam HENMT: normocephalic, atraumatic - Eye Exam Comment:: Bilateral pinpoint pupils mildly reactive to light. Absent corneal reflex. - Neck Exam Neck:: thyroid normal, no lymphadenopathy - Respiratory Exam Comments: Intubated and sedated. ET tube 20 at lips. Bilateral mild coarse breath sounds. No wheezing heard. - Cardiovascular Exam Cardiac:: S1, S2 - GI Exam GI:: soft, no hepatosplenomegaly, obese - Skin Exam Skin: warm - Neurological Exam Intubated and not responding absent cough and gag reflex. Patient not responding to noxious painful stimuli. Corneal reflex absent. No rigidity noted on extremities. Pupils bilateral equal pinpoint and mildly reactive to light. - Extremities Exam Extremities: no cyanosis, no clubbing, edema Assessment and Plan (1) Cardiac arrest Status: Acute Category: Medical Code(s): I46.9 - Cardiac arrest, cause unspecified (2) A-fib Status: Acute Qualifiers: Atrial fibrillation type: unspecified Qualified Code(s): I48.91 - Unspecified atrial fibrillation Category: Medical Code(s): I48.91 - Unspecified atrial fibrillation (3) Anemia Status: Acute Qualifiers: Anemia type: unspecified type Qualified Code(s): D64.9 - Anemia, unspecified Category: Medical Code(s): D64.9 - Anemia, unspecified (4) Elevated brain natriuretic peptide (BNP) level Status: Acute Category: Medical Code(s): R79.89 - Other specified abnormal findings of blood chemistry (5) Obesity Status: Acute Qualifiers: Obesity type: due to excess calories Obesity classification: adult class 3 (BMI >= 40) Serious obesity comorbidity presence: with serious comorbidity Body mass index: BMI 45.0-49.9 Qualified Code(s): E66.01 - Morbid (severe) obesity due to excess calories; Z68.42 - Body mass index [BMI] 45.0-49.9, adult Category: Medical Code(s): E66.9 - Obesity, unspecified (6) Renal insufficiency Status: Acute Category: Medical Code(s): N28.9 - Disorder of kidney and ureter, unspecified (7) Respiratory failure with hypercapnia Status: Acute Qualifiers: Chronicity: acute Qualified Code(s): J96.02 - Acute respiratory failure with hypercapnia Category: Medical Code(s): J96.92 - Respiratory failure, unspecified with hypercapnia (8) Septic shock Status: Acute Category: Medical Code(s): A41.9 - Sepsis, unspecified organism; R65.21 - Severe sepsis with septic shock (9) Severe sepsis with acute organ dysfunction Status: Acute Category: Medical Code(s): A41.9 - Sepsis, unspecified organism; R65.20 - Severe sepsis without septic shock (10) UTI (urinary tract infection) Status: Acute Qualifiers: Urinary tract infection type: acute cystitis Hematuria presence: without hematuria Qualified Code(s): N30.00 - Acute cystitis without hematuria Category: Medical Code(s): N39.0 - Urinary tract infection, site not specified - Assessment and plan all Dx Assessment and Plan for all problems:: #Acute hypercarbic respiratory failure: #Healthcare associated pneumonia: 80-year-old with more than 28-[id number] smoking history recent episode of respiratory failure status post surgery with intubation for more than 7 days presented to the ED with hypercarbic respiratory failure with a pH of 6.87 and a PCO2 of 124.4. Chest x-ray showed left lower lobe pulmonary infiltrate. patient was found to be in agonal breathing after EMS picked him and patient has an episode of cardiac arrest with a rhythm of atrial fibrillation with return of ROSC status post ACLS. Patient was found to be agonal breathing at home when EMS was called unclear of the downtime. Patient is not responding to any noxious
--- NOTE | 2020-11-10 12:08 | NM_ITS ---
PROCEDURE: NM BRAIN 4V W FLOW Referring Doctor: Shawn Grier Patient Age:80Y CLINICAL INDICATION: Respiratory arrest, possible anoxic brain injury COMPARISON: CT CT HEAD/BRAIN WO CON from 11/09/2020 TECHNIQUE: 25.1 mCi TC 99e, exametizime radionuclide agent injected with Subsequent imaging head/brain performed FINDINGS: There appears be activity passing through both carotid arteries, with perfusion both right and left cerebral hemisphere on this study, reflecting bilateral brain perfusion. Images demonstrate blood flow perfusion to the cerebral hemispheres and as well as posterior fossa/cerebellar hemispheres. IMPRESSION: This study demonstrates persisting blood flow perfusion to the brain Bilateral blood flow perfusion to the cerebral hemispheres and posterior fossa evident on these images. Dictated by: Patric Richmond MD 11/10/2020 19:09 Patric Richmond MD in [place] 11/10/2020 19:09
--- NOTE | 2020-11-10 15:04 | PC.NURSE ---
relayed cre positive screen to md office
--- NOTE | 2020-11-10 17:02 | XR_ITS ---
PROCEDURE: XR CHEST PORTABLE Referring Doctor: Shawn Grier Patient Age:80Y CLINICAL HISTORY: verify og placement before tube feedings COMPARISON: CR XR CHEST PORTABLE from 11/08/[address] ANGIO CHEST from 11/09/2020 CR XR CHEST PORTABLE from 11/09/2020 CR XR CHEST PORTABLE from 11/10/2020 FINDINGS: AP chest to evaluate tubes NG tube is in place passing through GE junction with tip well into the stomach. ET tube remains in place with tip of 3.5 cm above farhana Right chest: Even with poor inspiration right lung actually appears slightly clearer on this follow-up study compared to study earlier in the day. This may in part be due to slightly rotated projection. However the right perihilar infiltrate is less evident but the infiltrate and atelectasis at right base less evident. Right hemidiaphragm remains elevated but is slightly better defined Left chest: However left chest there is increased density at left lung base particularly noting increased density at medial left lung base and medial retrocardiac region. Features here now obscure the descending aorta and medial hemidiaphragm reflecting progressive infiltrate/consolidation medial left lung base , left upper lung field is clear Mild cardiomegaly IMPRESSION: NG-tube and ET tube satisfactory position Definite progression airspace disease/and consolidation at the Left Lung base since study earlier today However at Right Chest there is seems to be slight improvement of the right basilar infiltrate/atelectasis and slight improvement of the right perihilar infiltrate Dictated by: Patric Richmond MD 11/10/2020 18:10 Patric Richmond MD in [place] 11/10/2020 18:10
--- NOTE | 2020-11-10 17:20 | PC.NURSE ---
md stated to start tube feedings. noted og tube pulled out reinserted it to 55cm. ordered for stat xray for before start.
[2020-11-10 17:26] LABS: POC Glucose,Bedside 102 (70-110)
[2020-11-10 17:26] LABS: POC Glucose,Bedside 103 (70-110)
--- NOTE | 2020-11-10 17:36 | PC.NURSE ---
patient has been off all sedation and propofol . still no response to any stimuli pain or other. pupils remain pinpoint some tears noted in eyes with reinsertion of og tube. copious amount of clear secretions coming from mouth and at times nostrils. tenacious green sputum per et tube. feet are flexed out. family have been at bedside most of day. awaiting for xray before starting tube feeds. tolerating vent. only over breathing with suctioning or movement. md plans for eeg. lungs remain a bit corase. q2 turns and oral care has been provided. monitoring of lukas hose. small scrape/scab to r knee from fall at home. fsbs within normal limits. urine dark with sediment and cloudy. vitals stable will continue to monitor.
[2020-11-10 20:59] LABS: POC Glucose,Bedside 118 (70-110)
[2020-11-11] VITALS (37 sets, daily range): BP systolic 127–186; BP diastolic 65–87; PULSE 68–85; RESP 16–19; TEMP 36.9–38.3; O2SAT 93–100; BMI 31.6
[2020-11-11 05:21] LABS: POC Glucose,Bedside 121 (70-110)
--- NOTE | 2020-11-11 06:56 | PC.NURSE ---
shift summary. patient completely unresponsive. corneal reflex absent, gag reflex absent, cough reflex absent. no sedating medication administered this shift. patient continues to have periods of facial twitching. lead nurse has shown sr, 2 + edema bilateral upper extremities. patient breaths over ventilator at times with rate up to 22. breath sounds coarse throughout. left more than right at [address] pulmocare has been advanced up 40 ml/hr, residuals q 4 hrs 5 to 10 ml. swartz catheter draining yellow urine with sediment. patient has maintained temp 99 to 102 this shift. tylenol given and ice applied to hot spots. family at bedside
[2020-11-11 07:02] LABS: ABG Base Excess -2.3 mmol/L (-2.4-2.3); ABG HCO3 23.4 mmhg (22.0-26.0); ABG Oxygen Saturation 99 % (90-100); ABG PCO2 43.4 mmhg (35.0-45.0); ABG PH 7.35 mmol/L (7.35-7.45); ABG PO2 133.7 mmhg (80-100); ABG TCO2 24.7 mmhg (23-27)
[2020-11-11 07:03] LABS: Allen's Test Patient Unable; Oxygen 50 %; PEEP 5; Source Right Radial; Tidal Volume 440; Vent Rate 16
--- NOTE | 2020-11-11 08:18 | HMH.ACPN2 ---
<Irish Ramirez - Last Filed: 11/11/20 08:18> Internal Medicine - PN: Subj *Date: 11/11/20 *Time: 08:18 Interval history: Patient remains nonresponsive today. According to the nurse there is no change in his condition. Chest x-ray from yesterday shows progression of airspace disease and consolidation at the left lung but some slight improvement in the right lung. Patient was seen by pulmonology yesterday and he wanted to change antibiotics from ertapenem to vancomycin and cefepime to cover healthcare associated pneumonia. He also felt the patient would benefit from an EEG to rule out seizures. Exam Vital signs and Labs for Last 24 Hours: Temp Pulse Resp BP Pulse Ox 99.7 F H 71 16 158/73 H 99 11/11/20 06:00 11/11/20 08:00 11/11/20 08:00 11/11/20 08:00 11/11/20 08:00 Laboratory Results - last 24 hr 11/10/20 11:47: POC Glucose 102 11/10/20 17:18: POC Glucose 103 11/10/20 20:29: POC Glucose 118 H 11/11/20 04:56: POC Glucose 121 H 11/11/20 06:57: Specimen Source Right radial, O2 % 50, ABG pH 7.35, ABG pCO2 43.4, ABG pO2 133.7 H, ABG HCO3 23.4, ABG Total CO2 24.7, ABG O2 Saturation 99, ABG Base Excess -2.3, Tito Test Patient unable, Vent Rate 16, Tidal Volume 440, PEEP 5 I & O for Last 24 hours: Intake & Output 11/08/20 11/09/20 11/10/20 11/11/20 11:59 11:59 11:59 11:59 Intake Total 4287 / 4403 4254 / 4422 2948 / 3109 2228 / 2228 Output Total 660 / 750 1226 / 1256 1176 / 1236 1119 / 1119 Balance 3627 / 3653 3028 / 3166 1772 / 1873 1109 / 1109 Weight 207 lb 3.752 oz 206 lb 12.697 oz 213 lb 10.047 oz 213 lb 10.047 oz Microbiology Reports for the Last 24 Hours: Microbiology 11/08/20 08:40 Anus CRE Surveillance Culture - Final 11/08/20 08:40 Sputum - Endotracheal Tube Aspirate Gram Stain - Final 11/08/20 08:40 Sputum - Endotracheal Tube Aspirate Sputum Culture - Preliminary 11/08/20 04:55 Urine,Catheterized Urine Culture - Preliminary 11/08/20 05:10 Blood Blood Culture - Preliminary NO GROWTH AFTER 48 HOURS 11/08/20 05:10 Blood Blood Culture - Preliminary NO GROWTH AFTER 48 HOURS - Constitutional no acute distress - *Routine Respiratory Exam Present: rhonchi (bilaterally) - *Routine Cardiovascular Exam Present: RRR - *Routine Abdominal Exam Present: soft, normoactive bowel sounds. Absent: tenderness - *Routine Extremities Exam Present: edema (1+). Absent: cyanosis, clubbing - *Routine Skin Exam Present: warm. Absent: rash - *Routine Neurological Exam no response to stimuli Assessment and Plan (1) Cardiac arrest Status: Acute Category: Medical Code(s): I46.9 - Cardiac arrest, cause unspecified (2) A-fib Status: Acute Qualifiers: Atrial fibrillation type: unspecified Qualified Code(s): I48.91 - Unspecified atrial fibrillation Category: Medical Code(s): I48.91 - Unspecified atrial fibrillation (3) Anemia Status: Acute Qualifiers: Anemia type: unspecified type Qualified Code(s): D64.9 - Anemia, unspecified Category: Medical Code(s): D64.9 - Anemia, unspecified (4) Elevated brain natriuretic peptide (BNP) level Status: Acute Category: Medical Code(s): R79.89 - Other specified abnormal findings of blood chemistry (5) Obesity Status: Acute Qualifiers: Obesity type: due to excess calories Obesity classification: adult class 3 (BMI >= 40) Serious obesity comorbidity presence: with serious comorbidity Body mass index: BMI 45.0-49.9 Qualified Code(s): E66.01 - Morbid (severe) obesity due to excess calories; Z68.42 - Body mass index [BMI] 45.0-49.9, adult Category: Medical Code(s): E66.9 - Obesity, unspecified (6) Renal insufficiency Status: Acute Category: Medical Code(s): N28.9 - Disorder of kidney and ureter, unspecified (7) Respiratory failure with hypercapnia Status: Acute Qualifiers: Chronicity: acute Quali
--- NOTE | 2020-11-11 09:35 | HMH.PHACONS ---
- Pharmacy Consult Date: 11/11/20 Time: 09:36 Referring provider: DR. SAHU Reason for Consult:: VANCOMYCIN DOSING Allergies and ADEs:: Allergies Allergy/AdvReac Type Severity Reaction Status Date / Time Penicillins Allergy Intermediate Rash Verified 11/08/20 08:17 Home Medications:: Home Medications Medication Instructions Recorded Confirmed Type Amlodipine Besylate [Norvasc 5mg 5 mg PO DAILY 11/08/20 11/08/20 History tablet] Atorvastatin Calcium [Lipitor 80mg 80 mg PO HS 11/08/20 11/08/20 History Tablet*] Hydralazine HCl [Hydralazine HCl 25 mg PO QID 11/08/20 11/08/20 History 25mg Tablet] Metoprolol Tartrate [Lopressor 25 mg PO BID 11/08/20 11/08/20 History 25mg tablet] Pantoprazole Sodium [Protonix 40mg 40 mg PO BID 11/08/20 11/08/20 History tablet] Tamsulosin HCl 0.4 mg PO HS 11/08/20 11/08/20 History methocarbamoL [Methocarbamol 500mg 750 mg PO BID 11/08/20 11/08/20 History Tablet] Height: 1.75 m Weight: 96.9 kg Laboratory Results:: Laboratory Results - last 24 hr 11/10/20 11:47: POC Glucose 102 11/10/20 17:18: POC Glucose 103 11/10/20 20:29: POC Glucose 118 H 11/11/20 04:56: POC Glucose 121 H 11/11/20 06:57: Specimen Source Right radial, O2 % 50, ABG pH 7.35, ABG pCO2 43.4, ABG pO2 133.7 H, ABG HCO3 23.4, ABG Total CO2 24.7, ABG O2 Saturation 99, ABG Base Excess -2.3, Tito Test Patient unable, Vent Rate 16, Tidal Volume 440, PEEP 5 Medical History: Reports:: Atrial Fibrillation, Cancer (bladder), Congestive Heart Failure, Gastroesophageal Reflux Disease(GERD), Home Oxygen, Hyperlipidemia, Hypertension Denies:: Diabetes Mellitus Type 1, Diabetes Mellitus Type 2, MRSA Assessment and Plan (1) Cardiac arrest Status: Acute Category: Medical Code(s): I46.9 - Cardiac arrest, cause unspecified (2) A-fib Status: Acute Qualifiers: Atrial fibrillation type: unspecified Qualified Code(s): I48.91 - Unspecified atrial fibrillation Category: Medical Code(s): I48.91 - Unspecified atrial fibrillation (3) Anemia Status: Acute Qualifiers: Anemia type: unspecified type Qualified Code(s): D64.9 - Anemia, unspecified Category: Medical Code(s): D64.9 - Anemia, unspecified (4) Elevated brain natriuretic peptide (BNP) level Status: Acute Category: Medical Code(s): R79.89 - Other specified abnormal findings of blood chemistry (5) Obesity Status: Acute Qualifiers: Obesity type: due to excess calories Obesity classification: adult class 3 (BMI >= 40) Serious obesity comorbidity presence: with serious comorbidity Body mass index: BMI 45.0-49.9 Qualified Code(s): E66.01 - Morbid (severe) obesity due to excess calories; Z68.42 - Body mass index [BMI] 45.0-49.9, adult Category: Medical Code(s): E66.9 - Obesity, unspecified (6) Renal insufficiency Status: Acute Category: Medical Code(s): N28.9 - Disorder of kidney and ureter, unspecified (7) Respiratory failure with hypercapnia Status: Acute Qualifiers: Chronicity: acute Qualified Code(s): J96.02 - Acute respiratory failure with hypercapnia Category: Medical Code(s): J96.92 - Respiratory failure, unspecified with hypercapnia (8) Septic shock Status: Acute Category: Medical Code(s): A41.9 - Sepsis, unspecified organism; R65.21 - Severe sepsis with septic shock (9) Severe sepsis with acute organ dysfunction Status: Acute Category: Medical Code(s): A41.9 - Sepsis, unspecified organism; R65.20 - Severe sepsis without septic shock (10) UTI (urinary tract infection) Status: Acute Qualifiers: Urinary tract infection type: acute cystitis Hematuria presence: without hematuria Qualified Code(s): N30.00 - Acute cystitis without hematuria Category: Medical Code(s): N39.0 - Urinary tract infection, site not specified - Assessment and plan all Dx Assessment and Plan for all problems:: BASED ON PATIENT FACTORS, JOSE CRUZ
[2020-11-11 11:31] LABS: POC Glucose,Bedside 116 (70-110)
[2020-11-11 13:19] LABS: Ammonia 12 umol/L (9-30)
--- NOTE | 2020-11-11 14:04 | HMH.PULMPN ---
Internal Medicine - PN: Subj *Date: 11/11/20 *Time: 14:04 Interval history: No acute respiratory events overnight. Vent settings remained stable. No change in mentation. Exam - Constitutional Constitutional:: comfortable - HENMT Exam HENMT: normocephalic, atraumatic - Neck Exam Neck:: thyroid normal, no lymphadenopathy - Respiratory Exam Comments: Bilateral coarse breath sounds unchanged from yesterday. ET tube in place 22 cm at the lip. Absent cough and gag reflux. - Cardiovascular Exam Cardiac:: S1, S2 - GI Exam GI:: soft, obese - Skin Exam Skin: warm, no rash - Neurological Exam Patient not responding to noxious stimuli. Absent cough and gag reflex. Corneal reflex absent. Patient off sedation for the last 24 hours. - Extremities Exam Extremities: no cyanosis, no clubbing, edema Assessment and Plan (1) Cardiac arrest Status: Acute Category: Medical Code(s): I46.9 - Cardiac arrest, cause unspecified (2) A-fib Status: Acute Qualifiers: Atrial fibrillation type: unspecified Qualified Code(s): I48.91 - Unspecified atrial fibrillation Category: Medical Code(s): I48.91 - Unspecified atrial fibrillation (3) Anemia Status: Acute Qualifiers: Anemia type: unspecified type Qualified Code(s): D64.9 - Anemia, unspecified Category: Medical Code(s): D64.9 - Anemia, unspecified (4) Elevated brain natriuretic peptide (BNP) level Status: Acute Category: Medical Code(s): R79.89 - Other specified abnormal findings of blood chemistry (5) Obesity Status: Acute Qualifiers: Obesity type: due to excess calories Obesity classification: adult class 3 (BMI >= 40) Serious obesity comorbidity presence: with serious comorbidity Body mass index: BMI 45.0-49.9 Qualified Code(s): E66.01 - Morbid (severe) obesity due to excess calories; Z68.42 - Body mass index [BMI] 45.0-49.9, adult Category: Medical Code(s): E66.9 - Obesity, unspecified (6) Renal insufficiency Status: Acute Category: Medical Code(s): N28.9 - Disorder of kidney and ureter, unspecified (7) Respiratory failure with hypercapnia Status: Acute Qualifiers: Chronicity: acute Qualified Code(s): J96.02 - Acute respiratory failure with hypercapnia Category: Medical Code(s): J96.92 - Respiratory failure, unspecified with hypercapnia (8) Septic shock Status: Acute Category: Medical Code(s): A41.9 - Sepsis, unspecified organism; R65.21 - Severe sepsis with septic shock (9) Severe sepsis with acute organ dysfunction Status: Acute Category: Medical Code(s): A41.9 - Sepsis, unspecified organism; R65.20 - Severe sepsis without septic shock (10) UTI (urinary tract infection) Status: Acute Qualifiers: Urinary tract infection type: acute cystitis Hematuria presence: without hematuria Qualified Code(s): N30.00 - Acute cystitis without hematuria Category: Medical Code(s): N39.0 - Urinary tract infection, site not specified - Assessment and plan all Dx Assessment and Plan for all problems:: #Acute hypercarbic respiratory failure: #Healthcare associated pneumonia: 80-year-old with more than 43-[id number] smoking history recent episode of respiratory failure status post surgery with intubation for more than 7 days presented to the ED with hypercarbic respiratory failure with a pH of 6.87 and a PCO2 of 124.4. Chest x-ray showed left lower lobe pulmonary infiltrate. patient was found to be in agonal breathing after EMS picked him and patient has an episode of cardiac arrest with a rhythm of atrial fibrillation with return of ROSC status post ACLS. Patient was found to be agonal breathing at home when EMS was called unclear of the downtime. Patient is not responding to any noxious stimuli, cough and gag reflex absent corneal reflex absent. Pupils bilateral equal pinpoint reacting to light. CT of the head performed within 24 hours of admission did not show any
[2020-11-11 14:22] LABS: Thyroid Stimulating Hormone 0.17 uIU/mL (0.465-4.68)
[2020-11-11 14:40] LABS: Vitamin B12 475 pg/mL (239-931)
--- NOTE | 2020-11-11 15:58 | PC.NURSE ---
No acute changes noted this shift, pt remains unresponsive, GCS 3, no corneal reflex, no gag reflex, limbs flaccid, EEG completed this shift, results reported to Dr Grier who states he will relay those results to family this evening, FiO2 decreased this shift to 40% pt tolerated well, has been turned q2h, oral care provided q2h, has required frequent suctioning, pt has large amount of secretions, vital signs have remained stable, lung sounds reveal coarse crackles t/o, 2+ edema noted peripherally, will continue to monitor.
[2020-11-11 16:32] LABS: POC Glucose,Bedside 120 (70-110)
--- NOTE | 2020-11-11 17:25 | DIET.NUTRFU ---
Tube feedings advanced to 40ml/hr, continuing to advance to goal rate with good tolerance. Currently meeting about 60% needs. No BM yet. 7# weight gain mon-, no change recorded today. Fluid needs being met. Continuing to monitor.
[2020-11-12] VITALS (14 sets, daily range): BP systolic 135–157; BP diastolic 61–74; PULSE 0–80; RESP 16–19; TEMP 37.4–37.9; O2SAT 90–96; BMI 31.6
--- NOTE | 2020-11-12 06:25 | PC.NURSE ---
shift summary pt remains unresponsive and unsedated, no corneal reflex, gag reflex, or cough reflex present. pt flaccid, no seizure activity noted. air sampling and monitoring has shown sr, 2-3+ edema noted in bilateral upper extremities. breath sounds sound course through out and more diminished then previous night, required frequent suction for copious amounts of tenacious secretions. sats have remained 89-97 on 40% fio2. tolerating tube feeding at goal rate of 60ml/hr. swartz draining clear yellow urine. family has remained at bedside, encouraged and allowed to ask questions, voice concerns, and express emotions.
--- NOTE | 2020-11-12 08:29 | HMH.ACPN2 ---
<Irish Ramirez - Last Filed: 11/12/20 08:29> Internal Medicine - PN: Subj *Date: 11/12/20 *Time: 08:29 Interval history: Patient is still nonresponsive this morning. The EEG showed generalized severe slowing and this was discussed with the patient's and daughter. His advanced directive was reviewed and the family wishes to remove support and provide comfort measures only. Exam Vital signs and Labs for Last 24 Hours: Temp Pulse Resp BP Pulse Ox 99.3 F 76 16 136/61 91 L 11/12/20 07:56 11/12/20 06:45 11/12/20 06:00 11/12/20 06:00 11/12/20 06:45 Laboratory Results - last 24 hr 11/11/20 11:21: POC Glucose 116 H 11/11/20 12:47: Ammonia 12 11/11/20 12:47: Vitamin B12 475, TSH 0.17 L 11/11/20 16:25: POC Glucose 120 H I & O for Last 24 hours: Intake & Output 11/09/20 11/10/20 11/11/20 11/12/20 11:59 11:59 11:59 11:59 Intake Total 4254 / 4422 2948 / 3109 2428 / 2428 840 / 840 Output Total 1226 / 1256 1176 / 1236 1324 / 1424 1012 / 1012 Balance 3028 / 3166 1772 / 1873 1104 / 1004 -172 / -172 Weight 206 lb 12.697 oz 213 lb 10.047 oz 213 lb 10.047 oz 213 lb 13.574 oz Microbiology Reports for the Last 24 Hours: Microbiology 11/08/20 08:40 Sputum - Endotracheal Tube Aspirate Gram Stain - Final 11/08/20 08:40 Sputum - Endotracheal Tube Aspirate Sputum Culture - Final Enterobacter cloacae 11/09/20 11:15 Nose MRSA Culture - Preliminary 11/08/20 04:55 Urine,Catheterized Urine Culture - Preliminary - Constitutional obtunded - *Routine Respiratory Exam Present: decreased breath sounds - *Routine Cardiovascular Exam Present: RRR - *Routine Abdominal Exam Present: soft, normoactive bowel sounds. Absent: tenderness Assessment and Plan (1) Cardiac arrest Status: Acute Category: Medical Code(s): I46.9 - Cardiac arrest, cause unspecified (2) A-fib Status: Acute Qualifiers: Atrial fibrillation type: unspecified Qualified Code(s): I48.91 - Unspecified atrial fibrillation Category: Medical Code(s): I48.91 - Unspecified atrial fibrillation (3) Anemia Status: Acute Qualifiers: Anemia type: unspecified type Qualified Code(s): D64.9 - Anemia, unspecified Category: Medical Code(s): D64.9 - Anemia, unspecified (4) Elevated brain natriuretic peptide (BNP) level Status: Acute Category: Medical Code(s): R79.89 - Other specified abnormal findings of blood chemistry (5) Obesity Status: Acute Qualifiers: Obesity type: due to excess calories Obesity classification: adult class 3 (BMI >= 40) Serious obesity comorbidity presence: with serious comorbidity Body mass index: BMI 45.0-49.9 Qualified Code(s): E66.01 - Morbid (severe) obesity due to excess calories; Z68.42 - Body mass index [BMI] 45.0-49.9, adult Category: Medical Code(s): E66.9 - Obesity, unspecified (6) Renal insufficiency Status: Acute Category: Medical Code(s): N28.9 - Disorder of kidney and ureter, unspecified (7) Respiratory failure with hypercapnia Status: Acute Qualifiers: Chronicity: acute Qualified Code(s): J96.02 - Acute respiratory failure with hypercapnia Category: Medical Code(s): J96.92 - Respiratory failure, unspecified with hypercapnia (8) Septic shock Status: Acute Category: Medical Code(s): A41.9 - Sepsis, unspecified organism; R65.21 - Severe sepsis with septic shock (9) Severe sepsis with acute organ dysfunction Status: Acute Category: Medical Code(s): A41.9 - Sepsis, unspecified organism; R65.20 - Severe sepsis without septic shock (10) UTI (urinary tract infection) Status: Acute Qualifiers: Urinary tract infection type: acute cystitis Hematuria presence: without hematuria Qualified Code(s): N30.00 - Acute cystitis without hematuria Category: Medical Code(s): N39.0 - Urinary tract infection, site not specified - Assessment and plan all Dx Assess
--- NOTE | 2020-11-12 08:55 | PC.NURSE ---
pt terminally extubated. RT (Margie), Dr. Grier, and myself @ BS. Robinul 0.45mg IV given per Dr. Grier. Pt placed on venti mask. Family @ BS after extubation. signed DNR consent/paper.
--- NOTE | 2020-11-12 09:15 | PC.NURSE ---
TOD 2155. Pronounced by Dr. Grier.
--- NOTE | 2020-11-12 09:30 | PC.NURSE ---
[facility] contacted and has been ruled out. Spoke to Miriam Cintron. Reference # [id number].
--- NOTE | 2020-11-12 09:54 | PC.NURSE ---
contacted Kalyn Horton [facility] for removal. Contacted capacity [facility] center and updated.
--- NOTE | 2020-11-15 14:55 | HMH.DCSUM ---
General - General Admission date:: 11/08/20 Discharge date: 11/12/20 HPI HPI: The patient is an 80 year old male who presented to [facility] ER this morning in respiratory and arrest. Patient was recently hospitalized at [facility] in [place] for surgery due to bladder cancer. He was found to be Covid 10 positive postoperatively. The night of surgery he had to be intubated due to respiratory distress. He was extubated after 7 days. A few days after that, patient became sedated again and was intubated again for 3 days. He was eventually released home on Nov 04 after completing Covid quarantine. He has never been officially diagnosed with COPD but he was discharged from [facility] with continuous oxygen per nasal cannula and prescriptions for Combivent and Anoro. On the evening prior to admission he started having some difficulty breathing. Around 3 am he worsened and was found to be barely breathing. EMS was called to bring patient to the ER. While in route he went into respiratory and cardiac arrest. Upon arriving at the ER patient was not breathing and was in asystole. He was intubated and ACLS protocol was initiated. He regained a pulse and was in a. fib with rapid ventricular response. He eventually converted back to sinus rhythm. Initial blood gas showed an extreme respiratory acidosis which improved with treatment over the next few hours. Hospital Course Hospital Course: The patient's chest x-ray showed his ET tube in satisfactory position and NG tube in place. There was a right sided pneumonia present. The patient was admitted for further evaluation and treatment after his respiratory and cardiac arrest. He was started on antibiotics. His acidosis did improve. A CTA was ordered and the patient was started on Lovenox. The CTA showed bilateral lower lobe pneumonic infiltrates with interval progression compared to the portable chest film. The patient remained intubated and had pain without the propofol drip for sedation. He ran a low-grade fever. He was suctioned for large amounts of secretions and no purposeful movements were noted. The patient had a head CT showing old lacunar infarcts and inflammatory change of the right maxilla and ethmoid sinuses. There was nothing else acute. The patient had a questionable seizure episode during the night when his sedation was weaned. It resolved with 2mg of Ativan. His ABGs did return to normal limits with no evidence of hypoxic or hypercarbic respiratory failure. His leukocytosis did improve and he became afebrile. His renal function stabilized. Pulmonology saw the patient and wanted to change antibiotics from ertapenem to vancomycin and cefepime to cover healthcare associated pneumonia. He also wanted to continue duo nebs. He felt the patient would benefit from an EEG to rule out active seizures and recommended loading the patient with Keppra given the concern for new onset of seizures. The patient remained on a fentanyl drip and did not respond to pain or verbal stimuli. He was receiving Keppra as well as his antibiotics. His fentanyl drip was stopped and his neuro status was monitored. An EEG was ordered. The patient did become febrile and his white blood cell count began increasing. Blood and urine culture showed no growth. ABGs were repeated and showed worsening hypercarbia. The patient had a nuclear medicine brain flow study due to his respiratory arrest and possible anoxic brain injury. It showed persisting blood flow perfusion to the brain. He had repeat chest x-ray showing progression of his pneumonia. The patient's EEG showed generalized severe slowing. This was discussed with the patient's and daughter. His advanced directive was reviewed and per the patient's wishes, the family decided to provide comfort measures only. On 11/12/2020 the patient was extubated and shortly after being extubated his respirations ceased and he had no pulse. His time of d
[2020-12-15 12:56] LABS: POC Glucose,Bedside 270 (70-110)
== END 2020-11-12 13:27 | disposition expired | DRG 207 ==
LOC: ER 06:30 → 2ND 07:04
PROVIDERS: Internal Medicine Pulmonary Disease; Admitting Provider Family Medicine; Emergency Provider Emergency Medicine; PCP Family Medicine; Visit Provider Family Medicine
DX: J96.01 Acute respiratory failure with hypoxia (principal); R65.21 Severe sepsis with septic shock; N39.0 Urinary tract infection, site not specified; J96.02 Acute respiratory failure with hypercapnia; I46.9 Cardiac arrest, cause unspecified; I48.91 Unspecified atrial fibrillation; Z99.81 Dependence on supplemental oxygen; Y95 Nosocomial condition; C67.9 Malignant neoplasm of bladder, unspecified; Z86.19 Personal history of other infectious and parasitic diseases; B94.8 Sequelae of other specified infectious and parasitic diseases
CPT/HCPCS: 31500; 94002; 36415; 70450; 71045; 71275; 78606; 80048; 80076; 81001; 82140; 82607; 82803; 82962; 83605; 83735; 83880; 84145; 84443; 84484; 85014; 85018; 85025; 86328; 87040; 87070; 87077; 87081; 87086; 87088; 87186; 87205; 87581; 87633; 87798; 93005; 94640; 95822; 96365; 96366; 96367; 96375; 99285; A9521; J1335; J1953; J2704; J3370; Q9967